=== PATIENT | male | born 1975 | race Caucasian/White ===

== ENCOUNTER 2019-04-18 11:04 | Inpatient (IN) ==
[2019-04-18] MEDS ORDERED: 0.9 % Sodium Chloride 1,000 ML IVC ONE (11:06)
[2019-04-18] MEDS ORDERED: Ondansetron 4 MG/2 ML VIAL IVP STA (11:07)
--- NOTE | 2019-04-18 11:08 | Emergency Department Note ---
Disposition Clinical Impression: Biliary colic, Nausea, Fever of unknown origin Disposition: Admitted As Inpatient Time of Disposition: 14:26 General Adult HPI - General Stated complaint: Nausea,fever,Constipation,dehydrated Time Seen by Provider: 04/18/19 11:06 Source: patient, family Mode of arrival: ambulatory Limitations: no limitations Nursing Notes Reviewed: Yes Vital Signs Reviewed: Yes - History of Present Illness HPI Narrative: I have re-performed and reviewed the history documented by the medical student, and I confirm its accuracy except as noted below 43-year-old male without significant past medical history, admits to a family history of an undiagnosed hepatobiliary syndrome, possibly [place] syndrome as the patient, his sister and father all have intermittent hyperbilirubinemia with jaundice and scleral icterus. Patient states that since Tuesday that he has been experiencing fevers, chills, headache, jaundice, nausea with dry heaving without vomiting, as well as constipation. Patient was seen at this facility on Tuesday with unremarkable workup sent home with antinausea medication and followed with his primary care physician on Tuesday ordered an outpatient gallbladder ultraso und which showed gallbladder sludge without cholecystitis or stones. Patient states that his symptoms have remained constant since this time and her only moderate regular relieved by Zofran, and alternating Tylenol/ibuprofen for the management of his fever. Patient's fevers have been up to 103 at home, patient has been able to tolerate by mouth intake Onset (ago): day(s) Location: head, abdomen - Related Data Home Medications Medication Instructions Recorded Confirmed No Known Home Drugs 04/18/19 04/18/19 Allergies Allergy/AdvReac Type Severity Reaction Status Date / Time No Known Allergies Allergy Verified 04/15/19 15:20 Review of Systems: *See History of Present Illness for more detail Constitutional: Admits fever, chills Cardiovascular: Denies: chest pain Respiratory: Denies: dyspnea, cough, hemoptysis Gastrointestinal: Admits abdominal pain, nausea, constipation Denies: vomiting, diarrhea, hematemesis, melena, hematochezia Genitourinary: Denies: hematuria Musculoskeletal: Denies: back pain, neck pain Integumentary: Denies: rash Neurological: Admits to headache Denies: weakness, lightheadedness/dizziness, numbness, paresthesias, difficulty with ambulation. Endocrine: Denies: fatigue All systems ED: reviewed and negative except as stated. Review of Systems: As Per HPI Past Medical History - Past Medical History Medical history: Reports: no medical history - Social History Smoking Status: Current every day smoker Alcohol use: Reports: none Drug use: Reports: none Physical Exam Constitutional: No acute distress, [id number], engaged to conversation, speech is fluid, answers questions appropriately Neuro: GCS 15, no overt focal neurological deficits Head: Atraumatic, normocephalic Eyes: Mild scleral icterus noted. Pupils equal, round and reactive to light, no conjunctival injection Neck: Trachea midline without deviation. Anterior neck is supple without swelling. *Chest: Symmetric chest wall rise *Heart: Cardiac rhythm and rate are regular with S1 and S2 , no S3 or S4 appreciated, no murmurs, gallops, rubs, or clicks. *Lungs: Lungs are clear to auscultation bilaterally, without accessory muscle use or prolonged expiratory phase. No wheezes, rhonchi or stridor appreciated. Abdomen: Mild right upper quadrant abdominal pain to palpation. Abdomen is flat, soft to palpation, normal bowel sounds. No abdominal bruit auscultated. Non-distended, non-rigid, no organomegaly, no ascites appreciated. No pulsatile mass, no guarding to palpation in all four quadrants, no rebound Extremities: Normal capillary refill without evidence of pedal edema, joint swelling or erythema. Pulses/motor intact in all 4 extremities. Psychiatric exam: Patient displays a normal affect and mood for the environment. No overt signs of hallucination. Integumentary: Mild jaundice, warm, dry, intact. No rash, cyanosis, diaphoresis, erythema, or pallor - General Limitations: no limitations General appearance: alert, in no apparent distress Course Course Narrative: Differential diagnosis includes but not limited to: Hepatitis Pancreatitis Biliary colic Viral syndrome Evaluations: basic laboratories, CT abdomen and pelvis without IV contrast. Treatments: IV fentanyl, Zofran for management of patient's pain, IV fluids - Reevaluation(s) Reevaluation #1: Patient noted hospice medicine service for evaluation and management of fever of unknown origin. Hospitalist requests urinalysis and chest x-ray for further evaluation. We are happy to comply with this request and will put these orders in while the patient is in the ED. Reevaluation #2: Patient was found to have lobar pneumonia on chest x-ray. Hospitalist made aware. Patient given azithromycin for management of pneumonia. Vital Signs Temperature 103.0 F H 04/18/19 11:06 Pulse Rate 114 04/18/19 11:06 Respiratory Rate 20 04/18/19 11:06 Blood Pressure 144/85 04/18/19 11:06 O2 Sat by Pulse Oximetry 99 04/18/19 11:06 Temperature 103 F H 04/18/19 12:53 Pulse Rate 103 04/18/19 14:18 Respiratory Rate 16 04/18/19 12:53 Blood Pressure 126/75 04/18/19 14:18 O2 Sat by Pulse Oximetry 98 04/18/19 12:53 Oxygen Delivery Oxygen Delivery Room Air Medical Decision Making - MDM Narrative Medical decision making narrative: EKG, laboratory and imaging results are unremarkable for acute pathology. Patient fever consistent despite management here in the ED. Patient still with pain nausea Patient will be admitted to hospital medicine service for further evaluation and management of fever of unknown origin, intractable nausea Patient verbalizes understanding and agreement with this plan. - Lab Data Lab results reviewed: Yes I reviewed the patient's lab results. Result diagrams: 04/18/19 11:10 04/18/19 11:10 Lab Results 04/18/19 04/18/19 Range/Units 11:10 11:10 WBC 9.2 (4.3-11.1) K/mcL RBC 4.74 (4.19-5.50) M/mcL Hgb 14.4 (12.9-16.9) g/dL Hct 42.1 (37.5-50.1) % MCV 88.8 (83.0-100.0) fL MCH 30.4 (28.0-33.3) pg MCHC 34.2 (31.6-35.5) g/dL RDW 12.4 (11.5-14.5) % Plt Count 235 (140-400) K/mcL MPV 9.1 L (9.4-12.4) fL Immature Gran % 0.4 (0-4) % Seg Neutrophils % 77.9 % Lymphocytes % 11.0 % Monocytes % 10.3 % Eosinophils % 0.1 % Basophils % 0.3 % Neutrophils # 7.2 (1.6-8.9) K/mcL Lymphocytes # 1.0 (0.6-4.6) K/mcL Monocytes # 1.0 (0.0-1.3) K/mcL Eosinophils # 0.0 (0.0-0.6) K/mcL Basophils # 0.0 (0.0-0.2) K/mcL Sodium 138 (136-145) mEq/L Potassium 3.7 (3.5-5.1) mEq/L Chloride 101 (98-107) mEq/L Carbon Dioxide 28 (23-29) mEq/L BUN 11 (6-20) mg/dL Creatinine 0.95 (0.70-1.30) mg/dL Est GFR ( Amer) > 60 (> 60) Est GFR (Non-Af Amer) > 60 (> 60) BUN/Creatinine Ratio 12 (6-26) Glucose 114 H (70-105) mg/dL Calculated Osmolality 286 (280-300) Calcium 9.3 (8.6-10.3) mg/dL Total Bilirubin 2.5 H (0.3-1.0) mg/dL Direct Bilirubin 0.5 H (0.0-0.2) mg/dL Indirect Bilirubin 2.0 H (0.0-1.2) mg/dL AST 29 (13-39) Units/L ALT 69 H (7-52) Units/L Alkaline Phosphatase 126 H (34-104) Units/L Serum Total Protein 7.4 (6.4-8.9) g/dL Albumin 4.3 (3.5-5.7) g/dL Globulin 3.1 (2.4-3.5) g/dL Albumin/Globulin Ratio 1.4 (1.1-2.2) Lipase 19 (11-82) Units/L - Radiology Data Radiology results reviewed: Yes I reviewed the patient's radiology results. Abdomen/Pelvis CT 04/18/19 12:22 IMPRESSION: 1. No acute findings within the abdomen or pelvis 2. Mild splenomegaly, nonspecific 3. Mild hepatic steatosis D/ / 04/18/2019 13:45:53 Jesse Boss MD / [facility] Interpreting Provider: Jesse Boss MD
[2019-04-18] MEDS ORDERED: Ibuprofen 400 MG TABLET PO ONE ×2 (11:15→22:27)
[2019-04-18] MEDS ORDERED: *HR* FentaNYL (PF) 100 MCG/2 ML VIAL IVP ONE (11:19)
--- NOTE | 2019-04-18 11:37 | Emergency Department Note ---
Disposition Clinical Impression: Biliary colic Disposition: Still a Patient Time of Disposition: 11:37 General Adult HPI - General Chief complaint: ED Abdominal Pain Stated complaint: abd pain, n/v, fever Time Seen by Provider: 04/18/19 11:06 Source: patient Limitations: no limitations Nursing Notes Reviewed: Yes Vital Signs Reviewed: Yes - History of Present Illness HPI Narrative: Attestation note: Patient was seen with the emergency medicine resident/nurse practitioner/physician switchboard operator assistant/transitional resident/medical student: Dr. SWEETIE IBARRA. I was present for the significant portions of the performance and interpretation of procedures and EKGs. I have personally performed a face to face evaluation on this patient. I have reviewed and agree with history and physical examination patient management and disposition. 3-year-old male seen by myself and resident on Tuesday patient was worked up for right upper quadrant pain. 2 the patient being here on Tuesday and his paucity of symptoms at that time emergent ultrasound was not required at that time nor available. Patient came back on Tuesday as advised and gotten outpatient ultrasound which showed sludge no CBD dilation and no evidence of gallstones. Patient was getting blood drawn at the lab and he had a bout right upper quadrant pain nausea and vomiting. Denies fevers or chills patient is discomfort but no surgical tenderness to his right upper quadrant patient getting IV fluids analgesics and antiemetics and antipyretics patient we will we will review the labs were ordered outpatient and determine a plan of action upon those results and the patient's response to therapy. Disposition pending Pain Scale: 5 - Related Data Allergies Allergy/AdvReac Type Severity Reaction Status Date / Time No Known Allergies Allergy Verified 04/15/19 15:20 Past Medical History - Past Medical History Medical history: Reports: no medical history - Social History Smoking Status: Current every day smoker Alcohol use: Reports: none Drug use: Reports: none Physical Exam - General Limitations: no limitations General appearance: alert, in no apparent distress Course Vital Signs Temperature 103.0 F H 04/18/19 11:06 Pulse Rate 114 04/18/19 11:06 Respiratory Rate 20 04/18/19 11:06 Blood Pressure 144/85 04/18/19 11:06 O2 Sat by Pulse Oximetry 99 04/18/19 11:06 Temperature 103.0 F H 04/18/19 11:06 Pulse Rate 114 04/18/19 11:06 Respiratory Rate 20 04/18/19 11:06 Blood Pressure 144/85 04/18/19 11:06 O2 Sat by Pulse Oximetry 99 04/18/19 11:06 Oxygen Delivery Oxygen Delivery Room Air
[2019-04-18 11:39] LABS: Basophils % 0.3 %; Eosinophils % 0.1 %; Hematocrit 42.1 % (37.5-50.1); Hemoglobin 14.4 g/dL (12.9-16.9); Immature Granulocytes % 0.4 % (0-4); Mean Corpuscular HGB Conc 34.2 g/dL (31.6-35.5); Mean Corpuscular Hemoglobin 30.4 pg (28.0-33.3); Mean Corpuscular Volume 88.8 fL (83.0-100.0); Mean Platelet Volume 9.1 fL (9.4-12.4); Monocytes % 10.3 %; Neutrophils # 7.2 K/mcL (1.6-8.9); Platelet Count 235 K/mcL (140-400); Red Blood Count 4.74 M/mcL (4.19-5.50); Red Cell Distribution Width 12.4 % (11.5-14.5); Segmented Neutrophils % 77.9 %; White Blood Count 9.2 K/mcL (4.3-11.1)
--- NOTE | 2019-04-18 11:54 | Emergency Department Note ---
Disposition Clinical Impression: Biliary colic, Nausea, Fever of unknown origin Disposition: Admitted As Inpatient Time of Disposition: 23:18 Abdominal Pain HPI - General Chief Complaint: ED Abdominal Pain Stated Complaint: abd pain, n/v, fever Time Seen by Provider: 04/18/19 11:06 Source: patient - History of Present Illness HPI Narrative: 43 year old male reports to the ER today with complaints of continued nausea and abdominal discomfort since Tuesday. He states he was in the ER on Tuesday and was discharged home to follow up with his PCP if he did not have improvement. He went to his PCP on Tuesday where he had more labs ordered and an outpatient ultrasound was preformed which show biliary sludge. He states he has had a fever which today has been up to 103.0 and has not had any improvement since Tue and has had reduced oral intake. He states he is having abdominal discomfort, nausea, constipation, and dark urine. He was informed by his PCP to come to the hospital today after the PCP received his ultrasound scan. Pain Scale: 5 - Related Data Home Medications Medication Instructions Recorded Confirmed No Known Home Drugs 04/18/19 04/18/19 Allergies Allergy/AdvReac Type Severity Reaction Status Date / Time No Known Allergies Allergy Verified 04/15/19 15:20 Constitutional: Reports: fever Cardiovascular: Denies: chest pain, dyspnea on exertion Respiratory: Denies: cough Gastrointestinal: Reports: nausea, vomiting (dry heaves), constipation Abdominal Pain PMH - Past Medical History Medical history: Reports: no medical history Male Surgical History: Reports: Tonsillectomy - Social History Smoking status: Current every day smoker Alcohol use: Reports: none Drug use: Reports: none Physical Exam - General Limitations: no limitations General appearance: alert, in no apparent distress - Head Head exam: atraumatic, normocephalic - Eye Eye exam: Present: scleral icterus (mild) - ENT ENT exam: mucous membranes dry - Chest Chest inspection: Present: symmetric chest wall rise. Absent: tenderness - Respiratory Respiratory exam: Present: normal lung sounds bilaterally. Absent: wheezes - Cardiovascular Cardiovascular exam: Present: normal rhythm, tachycardia - Abdominal Exam Abdominal exam: Present: soft, tenderness (mild), normal bowel sounds, Collins's sign. Absent: guarding, rebound Course Vital Signs Temperature 103.0 F H 04/18/19 11:06 Pulse Rate 114 04/18/19 11:06 Respiratory Rate 20 04/18/19 11:06 Blood Pressure 144/85 04/18/19 11:06 O2 Sat by Pulse Oximetry 99 04/18/19 11:06 Temperature 102.1 F H 04/18/19 22:45 Pulse Rate 93 04/18/19 22:45 Respiratory Rate 16 04/18/19 22:45 Blood Pressure 126/80 04/18/19 22:45 O2 Sat by Pulse Oximetry 96 04/18/19 22:45 Oxygen Delivery Oxygen Delivery Room Air Abdominal Pain - Lab Data Result diagrams: 04/18/19 11:10 04/18/19 11:10 Lab Results 04/18/19 04/18/19 Range/Units 11:10 11:10 WBC 9.2 (4.3-11.1) K/mcL RBC 4.74 (4.19-5.50) M/mcL Hgb 14.4 (12.9-16.9) g/dL Hct 42.1 (37.5-50.1) % MCV 88.8 (83.0-100.0) fL MCH 30.4 (28.0-33.3) pg MCHC 34.2 (31.6-35.5) g/dL RDW 12.4 (11.5-14.5) % Plt Count 235 (140-400) K/mcL MPV 9.1 L (9.4-12.4) fL Immature Gran % 0.4 (0-4) % Seg Neutrophils % 77.9 % Lymphocytes % 11.0 % Monocytes % 10.3 % Eosinophils % 0.1 % Basophils % 0.3 % Neutrophils # 7.2 (1.6-8.9) K/mcL Lymphocytes # 1.0 (0.6-4.6) K/mcL Monocytes # 1.0 (0.0-1.3) K/mcL Eosinophils # 0.0 (0.0-0.6) K/mcL Basophils # 0.0 (0.0-0.2) K/mcL Sodium 138 (136-145) mEq/L Potassium 3.7 (3.5-5.1) mEq/L Chloride 101 (98-107) mEq/L Carbon Dioxide 28 (23-29) mEq/L BUN 11 (6-20) mg/dL Creatinine 0.95 (0.70-1.30) mg/dL Est GFR ( Amer) > 60 (> 60) Est GFR (Non-Af Amer) > 60 (> 60) BUN/Creatinine Ratio 12 (6-26) Glucose 114 H (70-105) mg/dL Calculated Osmolality 286 (280-300) Calcium 9.3 (8.6-10.3) mg/dL Total Bilirubin 2.5 H (0.3-1.0) mg/dL Direct Bilirubin 0.5 H (0.0-0.2) mg/dL Indirect Bilirubin 2.0 H (0.0-1.2) mg/dL AST 29 (13-39) Units/L ALT 69 H (7-52) Units/L Alkaline Phosphatase 126 H (34-104) Units/L Serum Total Protein 7.4 (6.4-8.9) g/dL Albumin 4.3 (3.5-5.7) g/dL Globulin 3.1 (2.4-3.5) g/dL Albumin/Globulin Ratio 1.4 (1.1-2.2) Lipase 19 (11-82) Units/L
[2019-04-18 11:58] LABS: Alanine Aminotransferase 69 Units/L (7-52); Albumin 4.3 g/dL (3.5-5.7); Albumin/Globulin Ratio 1.4 (1.1-2.2); Alkaline Phosphatase 126 Units/L (34-104); Aspartate Amino Transferase 29 Units/L (13-39); BUN/Creatinine Ratio 12 (6-26); Bilirubin,Direct 0.5 mg/dL (0.0-0.2); Bilirubin,Total 2.5 mg/dL (0.3-1.0); Blood Urea Nitrogen 11 mg/dL (6-20); Calcium 9.3 mg/dL (8.6-10.3); Carbon Dioxide 28 mEq/L (23-29); Chloride 101 mEq/L (98-107); Globulin 3.1 g/dL (2.4-3.5); Glucose 114 mg/dL (70-105); Lipase 19 Units/L (11-82); Osmolality,Calculated 286 (280-300); Potassium 3.7 mEq/L (3.5-5.1); Sodium 138 mEq/L (136-145); Total Protein 7.4 g/dL (6.4-8.9); eGFR For African Americans > 60 (> 60); eGFR For Non-African Americans > 60 (> 60)
[2019-04-18] MEDS ORDERED: cefTRIAXone 1,000 MG in Water for inj. (sterile) 20 ML 10 ML IVP ONE ×2 (13:58→17:00)
[2019-04-18] MEDS ORDERED: Azithromycin 500 MG in D5% in Water 250 ML IVPB ONE (15:38)
[2019-04-18] MEDS ORDERED: Naloxone 0.4 MG/ML INJ IVP PRN (15:50)
[2019-04-18 16:22] LABS: Bilirubin,Urine Small (Negative); Blood,Urine Negative (Negative); Clarity,Urine Clear (Clear); Color,Urine Dark Yellow (Yellow); Glucose,Urine (UA) Normal (Normal); Ketones,Urine >=160 mg/dL (Negative); Leukocyte Esterase,Urine Negative (Negative); Nitrite,Urine Negative (Negative); Protein,Urine 100 mg/dL (Neg-Trace); Specific Gravity,Urine 1.017 (1.010-1.025); Urobilinogen,Urine Normal (Normal)
[2019-04-18 16:24] LABS: Bacteria,Urine None Seen per hpf (None-Few); Hyaline Casts,Urine Moderate per lpf (None-Few); Squamous Epithelial Cell,Urine Many per lpf (None-Few)
[2019-04-18] MEDS: Ondansetron 4 MG/2 ML VIAL IVP PRN (16:48)
[2019-04-18] MEDS: 0.9 % Sodium Chloride 1,000 ML IVC SCH ×3 (16:48→18:44)
[2019-04-18] MEDS: *HR* OxyCODONE/APAP 5/325 TABLET PO PRN (16:49)
--- NOTE | 2019-04-18 17:26 | Internal Med History&Physical ---
Date of Encounter: 04/18/19 Time of Encounter: 17:21 Internal Medicine - H&P: HPI Chief complaint: fever and nausea Admitted From: Emergency Dept Plans for Post Hospital Care: Home History of present illness: Mr. Lopez is a 43 year old male with no significant past med hx presented to ED after ultrasound of abdomen today. He was evaluated and found to have pneumonia and subsequently placed in observation. Mr Lopez started that he started feeling ill last Tuesday. He had some indigestion and nausea. He was seen in the weekend on Tuesday and diagnosed with viral syndrome and discharged with antiemetic. He followed with his PCP and ultrasound of gallbladder ordered. This was performed this AM and he was noted to have pain with pressure on gallbladder and sludge. He was sent to ED. CXR has shown a BENITA infiltrate and he was febrile to 103. According to patient and his he was achy and had a headache when this began. [place] feverish as well. No diarrhea. No abdominal pain. No urinary symptoms. No joint pain. No one else ill. He noticed last night that when he was lying on his L side he heard "bubbling" sound in his chest. Has hx of elevated bilirubin at baseline. He was markedly tachycardic in ED but this has resolved at this time. Overall he is feeling somewhat better. Past Med Surg Social Fam HX - Past Medical History Source: patient Medical history: no medical history - Past Surgical History Surgical History: no surgical history - Social History Smoking Status: Never smoker Alcohol use: none Drug use: none Occupational status: employed Current living situation: With Family Activity Level: Independent ambulation Recent Out of Country Travel Within the Last 8 Weeks: No - Family History Mother Living Status: Still Living Hx Family Cardiac Disorders: No Hx Family Respiratory Disorders: No Internal Medicine - H&P: Meds No Known Home Drugs 04/18/19 [History] Allergy/AdvReac Type Severity Reaction Status Date / Time No Known Allergies Allergy Verified 04/15/19 15:20 All Systems PM: A 10-system review of systems was performed and is negative for pertinent findings except as documented above in the HPI. - Constitutional Constitutional: anorexia, malaise - EENT Eyes: no change in vision, no loss of vision Ears: ear pain, no decreased hearing Nose, mouth and throat: dry mouth, no mouth pain, no sinus pain - Cardiovascular Cardiovascular ROS IM: no chest pain, no dyspnea, no dyspnea on exertion, no lightheadedness, no palpitations - Respiratory Respiratory: no cough, no dyspnea, no dyspnea on exertion, no wheezing, no chest congestion, no excessive phlegm production - Gastrointestinal Gastrointestinal: nausea, no abdominal pain, no diarrhea, no vomiting - Genitourinary Genitourinary ROS male: no genital pain, no urinary frequency - Musculoskeletal Musculoskeletal ROS IM: myalgias, no arthralgias - Integumentary Integumentary IM: no erythema, no rash - Neurological Neurological ROS: no confusion, no numbness, no weakness - Endocrine Endocrine IM: no excessive sweating - Hematologic/Lymphatic Hematologic/Lymphatic: no easy bleeding - Allergic/Immunologic Allergic/Immunologic: no itchy eyes - Constitutional Vitals: Temp Pulse Resp BP Pulse Ox 98.9 F 85 16 119/73 96 04/18/19 16:37 04/18/19 16:37 04/18/19 16:37 04/18/19 16:37 04/18/19 16:37 General appearance: Present: A&O X 3, pleasant, answers questions appropriately Exam: See below - Head Head exam: Present: atraumatic, normocephalic - Eye Eye exam: Present: EOMI, scleral icterus - ENT ENT exam: Present: mucous membranes moist - Neck Neck exam general surgery: Present: lymphadenopathy (Small lymph node behind R ear), normal inspection - Respiratory Respiratory exam: Present: rales (anterior BENITA area). Absent: rhonchi, wheezes - Cardiovascular Cardiovascular exam: Present: RRR. Absent: +S3, +S4, systolic murmur, tachycardia - GI/Abdominal GI/Abdominal exam: Present: normal bowel sounds, soft. Absent: mass, tenderness - Extremities Exam Extremities exam: Present: warm. Absent: tenderness - Neurological Exam Neurological exam: Present: alert, oriented X3, no focal deficits - Skin Skin exam: Present: dry, warm. Absent: rash Internal Med - H&P Results - Labs CBC & Chem 7: 04/18/19 11:10 04/18/19 11:10 Labs: Short CBC 04/18/19 Range/Units 11:10 WBC 9.2 (4.3-11.1) K/mcL Hgb 14.4 (12.9-16.9) g/dL Hct 42.1 (37.5-50.1) % Plt Count 235 (140-400) K/mcL Neutrophils # 7.2 (1.6-8.9) K/mcL BMP 04/18/19 11:10 Sodium 138 Potassium 3.7 Chloride 101 Carbon Dioxide 28 BUN 11 Creatinine 0.95 Glucose 114 H Calcium 9.3 Liver Function 04/18/19 Range/Units 11:10 Total Bilirubin 2.5 H (0.3-1.0) mg/dL Direct Bilirubin 0.5 H (0.0-0.2) mg/dL AST 29 (13-39) Units/L ALT 69 H (7-52) Units/L Alkaline Phosphatase 126 H (34-104) Units/L Albumin 4.3 (3.5-5.7) g/dL Urine 04/18/19 Range/Units 16:11 Urine Color Dark Yellow (Yellow) Urine Clarity Clear (Clear) Urine pH 7.0 (5.0-8.0) pH Units Ur Specific [place] 1.017 (1.010-1.025) Urine Protein 100 H (Neg-Trace) mg/dL Urine Glucose (UA) Normal (Normal) mg/dL - Impressions ITS Impressions Abdomen/Pelvis CT 04/18/19 12:22 IMPRESSION: 1. No acute findings within the abdomen or pelvis 2. Mild splenomegaly, nonspecific 3. Mild hepatic steatosis D/ / 04/18/2019 13:45:53 [facility] MD / [facility] Interpreting Provider: Jesse Boss MD Chest X-Ray 04/18/19 14:23 IMPRESSION: Findings of lobar pneumonia axial subsegment left upper lobe. Chest radiograph surveillance in 6-8 weeks recommended to ensure clearance. D/ / Bill Ndiaye / [facility]di[facility] Interpreting Provider: Bill Ndiaye - Assessment and Plan (1) Pneumonia Current Visit: Yes Status: Suspected Assessment and plan: Pt presented to ED with approx a week hx of symptoms of nausea and malaise. Prior work up negative. CXR has BENITA infiltrate. He is febrile and tachycardic in ED. Place in observation. IV abx. Fluids. Check urinary antigens. Check RIP. Anticipate will be discharged in next 24-48 hours. Qualifiers: Pneumonia type: due to Pneumococcus Laterality: left Lung location: upper lobe of lung Qualified Code(s): J13 - Pneumonia due to Streptococcus pneumoniae (2) Severe sepsis Current Visit: Yes Status: Acute Assessment and plan: Pt presented to ED with fever and tachycardia with pneumonia on CXR. Observation, IV fluids, IV abx. (3) Gallbladder sludge Current Visit: Yes Status: Acute Assessment and plan: Pt noted to have sludge with no cholecystitis. Has slight increase in ALT and alk phos Recheck labs in AM (4) Gilbert syndrome Current Visit: Yes Status: Suspected Assessment and plan: Pt noted to have chronic low grade elevation in bilirubin (as does his dad and sister). Monitor - Time Spent With Patient Total time spent is greater than 50% in coordination of care (as documented) at patient's floor/unit and/or counseling patient:
--- NOTE | 2019-04-18 17:39 | Sepsis Event Note ---
Sepsis Reassessment Note - Evaluation Sepsis Screen: No Definite Risk Current Stage of Sepsis: sepsis Possible Source of Sepsis: pulmonary - Focused Exam Date of Encounter: 04/18/19 Time of Encounter: 17:38 Vital Signs: Vital Signs Temp Pulse Resp BP Pulse Ox 04/18/19 16:37 98.9 F 85 16 119/73 96 04/18/19 14:18 103 126/75 04/18/19 12:53 103 F H 107 16 133/75 98 04/18/19 11:06 103.0 F H 114 20 144/85 99 Respiratory Exam: Present: rales Cardiovascular Exam: Present: RRR Capillary Refill: < 2 seconds Peripheral Pulse Strength: 3+ normal Peripheral Pulse Location: Pedal Skin Exam: normal turgor - Reassessment Comments Comments: Improving with fluids and abx.
[2019-04-18] MEDS: *HR* HYDROcodone/Acet 5/325 mg TABLET PO PRN (18:44)
[2019-04-18 18:56] LABS: Adenovirus Not Detected (Not Detect); Bordetella Pertussis Not Detected (Not Detect); Chlamydophila pneumoniae Not Detected (Not Detect); Coronavirus 229E Not Detected (Not Detect); Coronavirus HKU1 Not Detected (Not Detect); Coronavirus NL63 Not Detected (Not Detect); Coronavirus OC43 Not Detected (Not Detect); Human Metapneumovirus Not Detected (Not Detect); Human Rhinovirus/Enterovirus Not Detected (Not Detect); Influenza A Subtype 2009 H1 Not Detected (Not Detect); Influenza A Untypeable Not Detected (Not Detect); Influenza B Not Detected (Not Detect); Mycoplasma pneumoniae Not Detected (Not Detect); Parainfluenza Virus 1 Not Detected (Not Detect); Parainfluenza Virus 2 Not Detected (Not Detect); Parainfluenza Virus 3 Not Detected (Not Detect); Parainfluenza Virus 4 Not Detected (Not Detect); Respiratory Syncytial Virus Not Detected (Not Detect)
[2019-04-18] MEDS: Acetaminophen 325 MG TABLET PO PRN (23:43)
[2019-04-19] MEDS: 0.9 % Sodium Chloride 1,000 ML IVC SCH ×3 (02:13→17:13)
[2019-04-19] MEDS: Ondansetron 4 MG/2 ML VIAL IVP PRN ×2 (05:26→17:11)
[2019-04-19] MEDS: Acetaminophen 325 MG TABLET PO PRN ×3 (05:34→20:12)
[2019-04-19 06:08] LABS: Hematocrit 38.1 % (37.5-50.1); Hemoglobin 13.4 g/dL (12.9-16.9); Mean Corpuscular HGB Conc 35.2 g/dL (31.6-35.5); Mean Corpuscular Hemoglobin 30.9 pg (28.0-33.3); Mean Platelet Volume 9.3 fL (9.4-12.4); Platelet Count 199 K/mcL (140-400); Red Blood Count 4.33 M/mcL (4.19-5.50); Red Cell Distribution Width 12.7 % (11.5-14.5)
[2019-04-19 06:26] LABS: Alanine Aminotransferase 50 Units/L (7-52); Albumin 3.3 g/dL (3.5-5.7); Albumin/Globulin Ratio 1.3 (1.1-2.2); Alkaline Phosphatase 94 Units/L (34-104); Aspartate Amino Transferase 29 Units/L (13-39); BUN/Creatinine Ratio 11 (6-26); Bilirubin,Total 1.7 mg/dL (0.3-1.0); Blood Urea Nitrogen 9 mg/dL (6-20); Calcium 7.9 mg/dL (8.6-10.3); Carbon Dioxide 20 mEq/L (23-29); Chloride 106 mEq/L (98-107); Globulin 2.6 g/dL (2.4-3.5); Glucose 108 mg/dL (70-105); Magnesium 1.7 mg/dL (1.6-2.6); Osmolality,Calculated 289 (280-300); Sodium 140 mEq/L (136-145); Total Protein 5.9 g/dL (6.4-8.9); eGFR For African Americans > 60 (> 60); eGFR For Non-African Americans > 60 (> 60)
[2019-04-19] MEDS: *HR* HYDROcodone/Acet 5/325 mg TABLET PO PRN (07:35)
[2019-04-19] MEDS ORDERED: Ibuprofen 400 MG TABLET PO PRN (11:59)
[2019-04-19] MEDS: *HR* OxyCODONE/APAP 5/325 TABLET PO PRN (12:37)
[2019-04-19] MEDS ORDERED: Sennosides/Docusate Sodium TABLET PO PRN (13:00)
--- NOTE | 2019-04-19 13:21 | Internal Med Progress Note ---
<Primitivo Heller - Last Filed: 04/19/19 14:05> Hospitalist Progress Note - Encounter Date of Encounter: 04/19/19 - Exam Vitals: Temp Pulse Resp BP Pulse Ox 101.9 F H 87 16 105/70 96 04/19/19 10:55 04/19/19 10:55 04/19/19 10:55 04/19/19 10:55 04/19/19 10:55 - Assessment and Plan (1) Pneumonia Current Visit: Yes Status: Suspected (2) Severe sepsis Current Visit: Yes Status: Resolved (3) Gallbladder sludge Current Visit: Yes Status: Acute (4) Gilbert syndrome Current Visit: Yes Status: Suspected - Time Spent with Patient Total time spent is greater than 50% in coordination of care (as documented) at patient's floor/unit and/or counseling patient: Internal Medicine: Result - Labs CBC & Chem 7: 04/19/19 05:56 04/19/19 05:56 Labs: Short CBC 04/19/19 Range/Units 05:56 WBC 12.0 H (4.3-11.1) K/mcL Hgb 13.4 (12.9-16.9) g/dL Hct 38.1 (37.5-50.1) % Plt Count 199 (140-400) K/mcL BMP 04/19/19 05:56 Sodium 140 Potassium 5.0 D Chloride 106 Carbon Dioxide 20 L BUN 9 Creatinine 0.84 Glucose 108 H Calcium 7.9 L Liver Function 04/19/19 Range/Units 05:56 Total Bilirubin 1.7 H (0.3-1.0) mg/dL AST 29 (13-39) Units/L ALT 50 (7-52) Units/L Alkaline Phosphatase 94 (34-104) Units/L Albumin 3.3 L (3.5-5.7) g/dL Urine 04/18/19 Range/Units 16:11 Urine Color Dark Yellow (Yellow) Urine Clarity Clear (Clear) Urine pH 7.0 (5.0-8.0) pH Units Ur Specific [place] 1.017 (1.010-1.025) Urine Protein 100 H (Neg-Trace) mg/dL Urine Glucose (UA) Normal (Normal) mg/dL - Impressions Impressions Abdomen/Pelvis CT 04/18/19 12:22 IMPRESSION: 1. No acute findings within the abdomen or pelvis 2. Mild splenomegaly, nonspecific 3. Mild hepatic steatosis D/ / 04/18/2019 13:45:53 Jesse Boss MD / edouard Interpreting Provider: Jesse Boss MD Chest X-Ray 04/18/19 14:23 IMPRESSION: Findings of lobar pneumonia axial subsegment left upper lobe. Chest radiograph surveillance in 6-8 weeks recommended to ensure clearance. D/ / Bill Ndiaye / Bill Ndiaye Interpreting Provider: Bill Ndiaye Consult Discharge Plan - Plan Referrals: William Lorenz DO [Primary Care Provider] - - Attending Attestation I examined this patient and my medical decision-making was reviewed with the Resident Physician on 04/19/19. I agree with the documented findings, disposition and treatment plan as described except to the extent set forth below. Mr Lopez is currently in observation for sepsis related to pneumonia. He remains moderate to high risk due to potential for worsening clinical status. Mr Lopez continues to be febrile today. Feels more congested in chest and not really able to cough it much. Continues to have headache. No GI issues now. No abdominal pain. Exam shows some evidence of congestion on L side of chest. No wheeze now. Warm to touch. Abd nontender. WBC slightly increased today. On RA. Urinary antigens and RIP negative. Continue IV abx and supportive care. Add muscle relaxant for headache and Senna Plus. Add mucinex to increase sputum. <Sarath Cai - Last Filed: 04/19/19 18:58> Hospitalist Progress Note - Encounter Date of Encounter: 04/19/19 Time of Encounter: 08:50 - Subjective Interval History: When seen today patient was admitting to mild shortness of breath, which has been unchanged since admission. Admitted to clear productive cough. He denied any subjective fever. Denied any chest pain. Denied any abdominal pain, nausea, or vomiting. - Exam Vitals: Temp Pulse Resp BP Pulse Ox 101.9 F H 87 16 105/70 96 04/19/19 10:55 04/19/19 10:55 04/19/19 10:55 04/19/19 10:55 04/19/19 10:55 Exam: GENERAL APPEARANCE: Well developed, well nourished, alert and cooperative, and appears to be in no acute distress. HEAD: normocephalic. EYES: vision is grossly intact. EARS: hearing grossly intact. NOSE: No nasal discharge. THROAT: Oral cavity and pharynx normal. No inflammation, swelling, exudate, or lesions. NECK: Neck supple, non-tender without lymphadenopathy, masses or thyromegaly. CARDIAC: Normal S1 and S2. No S3, S4 or murmurs. Rhythm is regular. There is no peripheral edema, cyanosis or pallor. Extremities are warm and well perfused. Capillary refill is less than 2 seconds. No carotid bruits. LUNGS: Clear to auscultation and percussion without rales, rhonchi, wheezing or diminished breath sounds. ABDOMEN: Positive bowel sounds. Soft, nondistended, nontender. No guarding or rebound. No masses. MUSKULOSKELETAL: Adequately aligned spine. ROM intact spine and extremities. No joint erythema or tenderness. Normal muscular development. Normal gait. BACK: Examination of the spine reveals normal gait and posture, no spinal deformity, symmetry of spinal muscles, without tenderness, decreased range of motion or muscular spasm. EXTREMITIES: No significant deformity or joint abnormality. No edema. Peripheral pulses intact. No varicosities. LOWER EXTREMITY: Examination of both feet reveals all toes to be normal in size and symmetry, normal range of motion, normal sensation with distal capillary filling of less than 2 seconds without tenderness, swelling, discoloration, nodules, weakness or deformity; SKIN: Skin normal color, texture and turgor with no lesions or eruptions. PSYCHIATRIC: The mental examination revealed the patient was oriented to person, place, and time. - Assessment and Plan (1) Pneumonia Current Visit: Yes Status: Suspected Assessment and Plan: Pt presented to ED with approx a week hx of symptoms of nausea and malaise. Prior work up negative. CXR has BENITA infiltrate. He is febrile and tachycardic in ED. Place in observation. He was febrile this morning with a temp of 101.9, however he was not tachycardic and his BP was normotensive. Fever decreased in the afternoon to 100.4. Urinary antigens were negative. Viral panel was negative. Plan: - C/W IV abx day #2. - C/W Fluids. (2) Severe sepsis Current Visit: Yes Status: Resolved Assessment and Plan: Pt presented to ED with fever and tachycardia with pneumonia on CXR. Plan: - Observation, IV fluids, IV abx. (3) Gallbladder sludge Current Visit: Yes Status: Acute Assessment and Plan: Pt noted to have sludge with no cholecystitis. Plan: - Has slight increase in ALT and alk phos. Normalized in the AM today. (4) Gilbert syndrome Current Visit: Yes Status: Suspected Assessment and Plan: Pt noted to have chronic low grade elevation in bilirubin (as does his dad and sister). - Time Spent with Patient Total time spent is greater than 50% in coordination of care (as documented) at patient's floor/unit and/or counseling patient: Internal Medicine: Result - Labs CBC & Chem 7: 04/19/19 05:56 04/19/19 05:56 Labs: Short CBC 04/19/19 Range/Units 05:56 WBC 12.0 H (4.3-11.1) K/mcL Hgb 13.4 (12.9-16.9) g/dL Hct 38.1 (37.5-50.1) % Plt Count 199 (140-400) K/mcL BMP 04/19/19 05:56 Sodium 140 Potassium 5.0 D Chloride 106 Carbon Dioxide 20 L BUN 9 Creatinine 0.84 Glucose 108 H Calcium 7.9 L Liver Function 04/19/19 Range/Units 05:56 Total Bilirubin 1.7 H (0.3-1.0) mg/dL AST 29 (13-39) Units/L ALT 50 (7-52) Units/L Alkaline Phosphatase 94 (34-104) Units/L Albumin 3.3 L (3.5-5.7) g/dL Urine 04/18/19 Range/Units 16:11 Urine Color Dark Yellow (Yellow) Urine Clarity Clear (Clear) Urine pH 7.0 (5.0-8.0) pH Units Ur Specific [place] 1.017 (1.010-1.025) Urine Protein 100 H (Neg-Trace) mg/dL Urine Glucose (UA) Normal (Normal) mg/dL - Impressions Impressions Abdomen/Pelvis CT 04/18/19 12:22 IMPRESSION: 1. No acute findings within the abdomen or pelvis 2. Mild splenomegaly, nonspecific 3. Mild hepatic steatosis D/ / 04/18/2019 13:45:53 Jesse Boss MD / edouard Interpreting Provider: Jesse Boss MD Chest X-Ray 04/18/19 14:23 IMPRESSION: Findings of lobar pneumonia axial subsegment left upper lobe. Chest radiograph surveillance in 6-8 weeks recommended to ensure clearance. D/ / Bill Ndiaye / Bill Ndiaye Interpreting Provider: Bill Ndiaye <Primitivo Heller - Last Filed: 04/19/19 14:05> (1) Pneumonia Qualifiers: Pneumonia type: due to Pneumococcus Laterality: left Lung location: upper lobe of lung Qualified Code(s): J13 - Pneumonia due to Streptococcus pneumoniae <Sarath Cai - Last Filed: 04/19/19 18:58> (1) Pneumonia Qualifiers: Pneumonia type: due to Pneumococcus Laterality: left Lung location: upper lobe of lung Qualified Code(s): J13 - Pneumonia due to Streptococcus pneumoniae
[2019-04-19] MEDS: cefTRIAXone 2,000 MG in Water for inj. (sterile) 20 ML 20 ML IVP SCH (16:12)
[2019-04-19] MEDS: Azithromycin 500 MG in D5% in Water 250 ML IVPB SCH (16:15)
[2019-04-19] MEDS ORDERED: *HR* Promethazine 25 MG/ML VIAL IVP PRN (18:43)
[2019-04-19] MEDS ORDERED: *HR* Promethazine 25 MG/ML VIAL ONE (18:49)
[2019-04-20] MEDS: 0.9 % Sodium Chloride 1,000 ML IVC SCH (01:03)
[2019-04-20] MEDS: Ondansetron 4 MG/2 ML VIAL IVP PRN (04:50)
[2019-04-20] MEDS: Acetaminophen 325 MG TABLET PO PRN ×2 (05:36→20:24)
[2019-04-20] MEDS ORDERED: *HR* LORazepam 2 MG/ML VIAL IVP ONE (06:04)
[2019-04-20] MEDS ORDERED: Levalbuterol Neb 1.25 MG/3 ML ONE (06:33)
[2019-04-20] MEDS: Levalbuterol Neb 1.25 MG/3 ML IH SCH ×4 (06:35→21:59)
[2019-04-20 07:14] LABS: Hematocrit 34.7 % (37.5-50.1); Mean Corpuscular Hemoglobin 30.5 pg (28.0-33.3); Mean Corpuscular Volume 89.7 fL (83.0-100.0); Mean Platelet Volume 9.3 fL (9.4-12.4); Platelet Count 248 K/mcL (140-400); Red Blood Count 3.87 M/mcL (4.19-5.50); Red Cell Distribution Width 12.7 % (11.5-14.5)
[2019-04-20 07:19] LABS: Hemoglobin 11.8 g/dL (12.9-16.9)
[2019-04-20 07:49] LABS: BUN/Creatinine Ratio 7 (6-26); Blood Urea Nitrogen 6 mg/dL (6-20); Calcium 7.8 mg/dL (8.6-10.3); Carbon Dioxide 24 mEq/L (23-29); Chloride 102 mEq/L (98-107); Glucose 126 mg/dL (70-105); Osmolality,Calculated 293 (280-300); Potassium 3.5 mEq/L (3.5-5.1); Sodium 142 mEq/L (136-145); eGFR For African Americans > 60 (> 60); eGFR For Non-African Americans > 60 (> 60)
[2019-04-20] MEDS: *HR* HYDROcodone/Acet 5/325 mg TABLET PO PRN (09:21)
--- NOTE | 2019-04-20 09:29 | Pulmonology Consult Note ---
Date of Encounter: 04/20/19 Time of Encounter: 09:29 Assessment and Plan (1) Pneumonia Current Visit: Yes Status: Suspected Blood cultures and urine antigens are negative respiratory infection panel negative I reviewed the patient's chest x-ray there is notable left upper lobe pneumonia white count has normalized today but he remains febrile clinically he appears to be improving I discussed with the patient that if persistent fever into tomorrow I would recommend bronchoscopy otherwise can be transitioned to oral antibiotic such as respiratory fluoroquinolone to complete a 10 day course. Please keep nothing by mouth at midnight for this reason In any event, patient will need a follow-up chest x-ray in 4-6 weeks to demonstrate resolution Qualifiers: Pneumonia type: due to Pneumococcus Laterality: left Lung location: upper lobe of lung Qualified Code(s): J13 - Pneumonia due to Streptococcus pneumoniae (2) Severe sepsis Current Visit: Yes Status: Resolved this appears to be secondary to pneumonia and is improving Abdominal evaluation thus far was unremarkable Cultures negative Continue antimicrobials Thank you very much for this consultation we will continue to follow with the patient History of Present Illness Consult date: 04/20/19 Requesting physician: Primitivo Heller Reason for consult: pneumonia Chief complaint: Difficulty in Breathing History of present illness: Mr Lopez is a pleasant 43yo gentleman with a past medical history of Gilbert's disease who is currently admitted for Pneumonia. He started experiencing Nausea (without vomiting) malaise, and high grade fevers (>103F) at home last Tuesday. He was then taking Tylenol and ibuprofen but as soon as the medication would wear off the fever would return. He presented to ED on Tuesday and was discharged without any acute findings presented to PCP on Tuesday of this week and RUQ U/S was ordered but patient was experiencing such severe symptoms that he attempted to have U/S done earlier which showed sludge and he was told to go to ED for e valuation. CT abd/pelvis was done w/o acute cholecystitis CXR was performed which was + for BENITA PNA patient was been treated with IV Ceftriaxone and Azithro but continues to have fevers pulmonary was consulted for further eval. In speaking with Mr Lopez today he tells me that he is a lifelong nonsmoker with no significant respiratory illnesses in the past. 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 He does keep rabbits at home but no other exotic pets including birds. Outside of a recent trip to [place] about a month ago he denies any travel including outside of the [place] recently. He denies sick contacts. He does report that he has been clean ing his garage recently that was full of moisture mold and mildew and very ashia. In addition to fevers chills and sweats he has endorsed productive cough with purulent sputum occasionally there is been flecks of blood in the sputum. No misa hemoptysis however he denies any abdominal pain he has noticed nausea and indigestion but no real abdominal pain to speak of denies any diarrhea or burning with urination he has noted ear pressure but denies vision change. He says that today is the first day that he has felt better Past Med Surg Social Fam HX - Past Medical History Medical history: no medical history Psychiatric history: no psych history - Past Surgical History Surgical History: no surgical history - Social History Smoking Status: Never smoker Smokeless Tobacco Status: No Alcohol use: none Drug use: none - Family History Mother Living Status: Still Living Hx Family Cardiac Disorders: No Hx Family Respiratory Disorders: No Medications and Allergies No Known Home Drugs 04/18/19 [History] Allergy/AdvReac Type Severity Reaction Status Date / Time No Known Allergies Allergy Verified 04/19/19 08:57 All Systems: The remainder of the systems were reviewed and are negative Physical Examination Vital Signs: Vital Signs, Last 4 Hours Temp Pulse Resp BP Pulse Ox 04/20/19 06:46 100.0 F H 105 18 110/64 94 04/20/19 06:35 20 96 04/20/19 05:35 101.2 F H General appearance: no acute distress Eyes: nonicteric ENT: oropharynx moist Neck: supple Effort: normal Auscultation: bilateral: clear Cardiovascular: regular rate and rhythm Gastrointestinal: normoactive bowel sounds, soft, non-tender Integumentary: normal Extremities: no cyanosis, no edema, no clubbing Musculoskeletal: no deformities normal mental status, non-focal exam mood appropriate Results - Laboratory Findings CBC and BMP: 04/20/19 06:42 04/20/19 06:42 Abnormal lab findings: Abnormal lab results WBC 12.0 K/mcL (4.3-11.1) H 04/19/19 05:56 RBC 3.87 M/mcL (4.19-5.50) L 04/20/19 06:42 Hgb 11.8 g/dL (12.9-16.9) L D 04/20/19 06:42 Hct 34.7 % (37.5-50.1) L 04/20/19 06:42 MPV 9.3 fL (9.4-12.4) L 04/20/19 06:42 Carbon Dioxide 20 mEq/L (23-29) L 04/19/19 05:56 Glucose 126 mg/dL (70-105) H 04/20/19 06:42 Calcium 7.8 mg/dL (8.6-10.3) L 04/20/19 06:42 1.7 mg/dL (0.3-1.0) H 04/19/19 05:56 0.5 mg/dL (0.0-0.2) H 04/18/19 11:10 2.0 mg/dL (0.0-1.2) H 04/18/19 11:10 ALT 69 Units/L (7-52) H 04/18/19 11:10 126 Units/L (34-104) H 04/18/19 11:10 5.9 g/dL (6.4-8.9) L 04/19/19 05:56 3.3 g/dL (3.5-5.7) L 04/19/19 05:56 100 mg/dL (Neg-Trace) H 04/18/19 16:11 >=160 mg/dL (Negative) H 04/18/19 16:11 Small (Negative) H 04/18/19 16:11 5-15 per hpf (0-3) H 04/18/19 16:11 5-15 per hpf (0-3) H 04/18/19 16:11 Ur Squamous Epith Cells Many per lpf (None-Few) H 04/18/19 16:11 Hyaline Casts Moderate per lpf (None-Few) H 04/18/19 16:11 Ur Culture Indicated? YES (NO) A 04/18/19 16:11 - Microbiology Findings Microbiology Findings: Microbiology, Last 48 Hours 04/18/19 16:11 Urine Culture - Final Urine,Clean Catch No growth. 04/18/19 22:50 Legionella Antigen - Final Urine,Clean Catch Streptococcus pneumoniae Antigen (M - Final 04/18/19 16:27 Blood Culture - Preliminary Peripheral Venipuncture Culture is incubating and being continuously monitored for growth. Final report to follow. 04/18/19 16:27 Blood Culture - Preliminary Peripheral Venipuncture Culture is incubating and being continuously monitored for growth. Final report to follow. - Diagnostic Findings Chest x-ray: report reviewed, image reviewed - Clinical Findings Intake & Output: Intake & Output 04/19/19 04/20/19 04/20/19 23:59 07:59 15:59 Intake Total 0 / 4110 1500 / 1500 Balance 1910 / 4110 1500 / 1500 Consult Discharge Plan - Plan Referrals: William Lorenz DO [Primary Care Provider] -
[2019-04-20] MEDS: *HR* OxyCODONE/APAP 5/325 TABLET PO PRN ×2 (11:18→17:58)
--- NOTE | 2019-04-20 13:18 | Internal Med Progress Note ---
Hospitalist Progress Note - Encounter Date of Encounter: 04/20/19 Time of Encounter: 09:00 - Subjective Interval History: When seen today patient says his breathing has improved from yesterday a little but still continues to complain of congestion on the left side. He admits to subjective fever. Denies any nausea or vomiting. Denies any abdominal pain. - Exam Vitals: Temp Pulse Resp BP Pulse Ox 99.8 F H 106 14 127/66 93 04/20/19 10:03 04/20/19 10:03 04/20/19 10:03 04/20/19 10:04/20/19 10:03 Exam: GENERAL APPEARANCE: Well developed, well nourished, alert and cooperative, and appears to be in no acute distress. HEAD: normocephalic. EYES: vision is grossly intact. EARS: hearing grossly intact. NOSE: No nasal discharge. THROAT: Oral cavity and pharynx normal. No inflammation, swelling, exudate, or lesions. NECK: Neck supple, non-tender without lymphadenopathy, masses or thyromegaly. CARDIAC: Normal S1 and S2. No S3, S4 or murmurs. Rhythm is regular. There is no peripheral edema, cyanosis or pallor. Extremities are warm and well perfused. Capillary refill is less than 2 seconds. No carotid bruits. LUNGS: No signs of wheezing, but did show some crackles on the L posterior side. ABDOMEN: Positive bowel sounds. Soft, nondistended, nontender. No guarding or rebound. No masses. MUSKULOSKELETAL: Adequately aligned spine. ROM intact spine and extremities. No joint erythema or tenderness. Normal muscular development. Normal gait. BACK: Examination of the spine reveals normal gait and posture, no spinal deformity, symmetry of spinal muscles, without tenderness, decreased range of motion or muscular spasm. EXTREMITIES: No significant deformity or joint abnormality. No edema. Peripheral pulses intact. No varicosities. LOWER EXTREMITY: Examination of both feet reveals all toes to be normal in size and symmetry, normal range of motion, normal sensation with distal capillary filling of less than 2 seconds without tenderness, swelling, discoloration, nodules, weakness or deformity; SKIN: Skin normal color, texture and turgor with no lesions or eruptions. PSYCHIATRIC: The mental examination revealed the patient was oriented to person, place, and time. - Assessment and Plan (1) Pneumonia Current Visit: Yes Status: Suspected Assessment and Plan: Pt presented to ED with approx a week hx of symptoms of nausea and malaise. Prior work up negative. CXR has BENITA infiltrate. He is febrile and tachycardic in ED. Place in observation. He was febrile this morning with a temp of 101.9, however he was not tachycardic and his BP was normotensive. Fever decreased in the afternoon to 100.4. Urinary antigens were negative. Viral panel was negative. Pulmonology was consulted. Plan: - C/W IV antibiotics for now. Transition to PO fluoroquinolone tomorrow if no fever. - Pulmonology recommends if persistent fever into tomorrow, would proceed with bronchoscopy otherwise can be transitioned to oral antibiotic such as respiratory fluoroquinolone to complete a 10 day course. - NPO at midnight for possible bronchoscopy tomorrow. - Patient will need a follow-up chest x-ray in 4-6 weeks to demonstrate r esolution - C/W Fluids. (2) Severe sepsis Current Visit: Yes Status: Resolved Assessment and Plan: Pt presented to ED with fever and tachycardia with pneumonia on CXR. WBC downtrending. Afebrile this morning. Plan: - Observation, IV fluids, IV abx. (3) Gallbladder sludge Current Visit: Yes Status: Acute Assessment and Plan: Pt noted to have sludge with no cholecystitis. Plan: - Has slight increase in ALT and alk phos, but has normalized since.. (4) Gilbert syndrome Current Visit: Yes Status: Suspected Assessment and Plan: Pt noted to have chronic low grade elevation in bilirubin (as does his dad and sister). - Time Spent with Patient Total time spent is greater than 50% in coordination of care (as documented) at patient's floor/unit and/or counseling patient: Internal Medicine: Result - Labs CBC & Chem 7: 04/20/19 06:42 04/20/19 06:42 Labs: Short CBC 04/20/19 Range/Units 06:42 WBC 9.0 (4.3-11.1) K/mcL Hgb 11.8 L D (12.9-16.9) g/dL Hct 34.7 L (37.5-50.1) % Plt Count 248 (140-400) K/mcL BMP 04/20/19 06:42 Sodium 142 Potassium 3.5 Chloride 102 Carbon Dioxide 24 BUN 6 Creatinine 0.83 Glucose 126 H Calcium 7.8 L - Impressions Impressions Chest X-Ray 04/20/19 05:32 IMPRESSION: Worsening consolidative process left upper lobe. Interval developing prominent interstitial markings since prior study with horizontal stranding in the right mid lung field. Findings may be related to fluid overload or mild venous congestion. No gross effusions are evident. D/ / Kika Garcia MD / Kika Garcia MD Interpreting Provider: Kika Garcia MD Consult Discharge Plan - Plan Referrals: William Lorenz DO [Primary Care Provider] - (1) Pneumonia Qualifiers: Pneumonia type: due to Pneumococcus Laterality: left Lung location: upper lobe of lung Qualified Code(s): J13 - Pneumonia due to Streptococcus pneumoniae
[2019-04-20] MEDS ORDERED: Ketorolac 15 MG/ML VIAL IVP PRN (14:05)
[2019-04-20] MEDS: cefTRIAXone 2,000 MG in Water for inj. (sterile) 20 ML 20 ML IVP SCH (15:26)
[2019-04-20] MEDS: Azithromycin 500 MG in D5% in Water 250 ML IVPB SCH (15:31)
[2019-04-20] MEDS: levoFLOXacin 750 MG/150 ML 750 MG/150 ML BAG IVPB SCH (17:58)
[2019-04-21] MEDS ORDERED: Ibuprofen 600 MG TABLET PO ONE
[2019-04-21] MEDS: Fluticasone Propionate Nasal 50 MCG/SPRAY BOTTLE NS SCH ×2 (00:41→09:42)
[2019-04-21] MEDS: 0.9 % Sodium Chloride 1,000 ML IVC SCH ×2 (01:10→05:33)
[2019-04-21] MEDS ORDERED: Acetaminophen IV 1,000 MG/100 ML INFUS..BTL IVPB ONE (01:29)
--- NOTE | 2019-04-21 01:35 | Event Note ---
Date of Encounter: 04/20/19 Time of Encounter: 19:43 Alerted by pts. nurse JOVITA Cali that the patient was reporting a 10 out of 10 headache. No history of migraines. Patient reported to nurse that nothing he has received today (pt. has [place] and Toradol PRN) has helped at this point. Patient's mother in the room at the time and stated he has had headaches since admission and does not feel that the headache is due to stress. Went to see the pt. who was resting in bed. Pts. mother was still present. Discussion w/pt. regarding muscle relaxer had taken place during the day. Zanaflex contraindicated d/t current Levaquin and risk for QT prolongation. Flexeril ordered 10 mg by mouth at bedtime. Pt. stated that he did not sleep well at all last night. I told the pt. I would order diphenhydramine IVP to help his insomnia. Pt. still reporting unproductive cough. I had changed his guaifenesin from 600 mg to 1200 mg this morning. Flutter valve added to Xopenex breathing treatments and RT notified. Pt. is sepsis risk d/t fever of 102, HR >90. Motrin ordered. If Motrin ineffective in treating fever, IVPB Ofirmev ordered. Lactic 0.8 yesterday. Repeat ordered for 04:00. Nurse instructed to continue monitoring the pt. very closely and alert me immediately of any adverse changes.
[2019-04-21] MEDS: Levalbuterol Neb 1.25 MG/3 ML IH SCH ×4 (03:30→22:00)
[2019-04-21 06:30] LABS: Hematocrit 31.9 % (37.5-50.1); Hemoglobin 10.8 g/dL (12.9-16.9); Mean Corpuscular HGB Conc 33.9 g/dL (31.6-35.5); Mean Corpuscular Hemoglobin 30.2 pg (28.0-33.3); Mean Corpuscular Volume 89.1 fL (83.0-100.0); Mean Platelet Volume 9.1 fL (9.4-12.4); Platelet Count 259 K/mcL (140-400); Red Blood Count 3.58 M/mcL (4.19-5.50); Red Cell Distribution Width 12.6 % (11.5-14.5); White Blood Count 9.9 K/mcL (4.3-11.1)
--- NOTE | 2019-04-21 06:44 | Pulmonology Progress Note ---
Date of Encounter: 04/21/19 Time of Encounter: 06:43 Assessment and Plan (1) Pneumonia Current Visit: Yes Status: Suspected I discussed with the patient given persistent fevers and clinical symptoms I recommend bronchoscopy to rule out atypical infection and possible resistant infection he declined at this time stating that he wanted to be evaluated for "fungal infections" by blood work and if that does not turn up anything when he would consider bronchoscopy. As noted in the history and physical from yesterday he had been cleaning out his garage recently and was exposed to what he thought was mold and old the garage. Occasionally acute histoplasmosis infections can present like this is not unreasonable sent to send off fungal serologies I see that the Aspergillus and histoplasma galactomannan's have been sent off I will add to that beta D glucan and immunodiffusion for fungal infections as well. White count has normalized which is encouraging would continue treatment with current antimicrobial regimen pending further evaluation since bronchoscopy is negative be performed would also make sure that we have several sputum samples for analysis these too can be analyzed for fungal infections I will follow with you if patient changes his mind over the next 24 hours is keep him nothing by mouth and we can reevaluate for bronchoscopy tomorrow. I recommended this point at the very least repeating his chest x-ray and more likely would recommend formal CT scan of his chest Qualifiers: Qualified Code(s): J13 - Pneumonia due to Streptococcus pneumoniae (2) Severe sepsis Current Visit: Yes Status: Resolved This appears secondary to pneumonia but he appears to have systemic symptoms is [employer] symptoms continue including headache and patient has persistent fevers to may need to consider lumbar puncture. Today on examination patient did not have any nuchal rigidity or photophobia but this clearly meningitis can be in the differential. If workup is unremarkable beginning of next week would have a low threshold for consultation with infectious disease Subjective Principal diagnosis: Pneumonia Interval history: Overnight patient had a severe headache which interestingly enough had improved after administration of nasal cannula O2 he says he is feeling better now still coughing up a lot of thick phlegm which is dark in color. Denies any misa hemoptysis. Continues to spike fevers as high as 102 Objective PUL Vital signs: Last Vital Signs Temp 99.3 F 04/21/19 02:45 Pulse 90 04/21/19 02:45 Resp 16 04/21/19 03:30 BP 124/79 04/21/19 02:45 Pulse Ox 95 04/21/19 03:30 General appearance: no acute distress Eyes: nonicteric ENT: oropharynx moist Neck: supple Auscultation: bilateral: rales (in lung bases ) Cardiovascular: regular rate and rhythm Gastrointestinal: normoactive bowel sounds, soft, non-tender Integumentary: normal Extremities: no cyanosis, no edema, no clubbing Musculoskeletal: no deformities normal mental status, non-focal exam Results - Laboratory Findings CBC and BMP: 04/21/19 06:19 04/21/19 06:19 Abnormal lab findings: Abnormal lab results WBC 12.0 K/mcL (4.3-11.1) H 04/19/19 05:56 RBC 3.58 M/mcL (4.19-5.50) L 04/21/19 06:19 Hgb 10.8 g/dL (12.9-16.9) L 04/21/19 06:19 Hct 31.9 % (37.5-50.1) L 04/21/19 06:19 MPV 9.1 fL (9.4-12.4) L 04/21/19 06:19 Carbon Dioxide 20 mEq/L (23-29) L 04/19/19 05:56 Glucose 126 mg/dL (70-105) H 04/20/19 06:42 POC Glucose 116 mg/dL (70-99) H 04/21/19 05:40 Calcium 7.8 mg/dL (8.6-10.3) L 04/20/19 06:42 1.7 mg/dL (0.3-1.0) H 04/19/19 05:56 0.5 mg/dL (0.0-0.2) H 04/18/19 11:10 2.0 mg/dL (0.0-1.2) H 04/18/19 11:10 ALT 69 Units/L (7-52) H 04/18/19 11:10 126 Units/L (34-104) H 04/18/19 11:10 5.9 g/dL (6.4-8.9) L 04/19/19 05:56 3.3 g/dL (3.5-5.7) L 04/19/19 05:56 100 mg/dL (Neg-Trace) H 04/18/19 16:11 >=160 mg/dL (Negative) H 04/18/19 16:11 Small (Negative) H 04/18/19 16:11 5-15 per hpf (0-3) H 04/18/19 16:11 5-15 per hpf (0-3) H 04/18/19 16:11 Ur Squamous Epith Cells Many per lpf (None-Few) H 04/18/19 16:11 Hyaline Casts Moderate per lpf (None-Few) H 04/18/19 16:11 Ur Culture Indicated? YES (NO) A 04/18/19 16:11 - Microbiology Findings Microbiology Findings: Microbiology, Last 48 Hours 04/18/19 16:11 Urine Culture - Final Urine,Clean Catch No growth. - Clinical Findings Intake & Output: Intake & Output 04/20/19 04/20/19 04/21/19 15:59 23:59 07:59 Intake Total 140 / 1790 150 / 1790 500 / 500 Output Total 0 / 900 900 / 900 Balance 140 / 890 -750 / 890 500 / 500 Consult Discharge Plan - Plan Referrals: William Lorenz DO [Primary Care Provider] -
[2019-04-21 06:52] LABS: BUN/Creatinine Ratio 6 (6-26); Blood Urea Nitrogen 5 mg/dL (6-20); Calcium 8.1 mg/dL (8.6-10.3); Carbon Dioxide 29 mEq/L (23-29); Chloride 103 mEq/L (98-107); Glucose 126 mg/dL (70-105); Osmolality,Calculated 291 (280-300); Potassium 3.1 mEq/L (3.5-5.1); Sodium 141 mEq/L (136-145); eGFR For African Americans > 60 (> 60); eGFR For Non-African Americans > 60 (> 60)
--- NOTE | 2019-04-21 06:52 | Pre-Sedation Evaluation ---
Pre-sedation evaluation - Pre-sedation checklist Date of procedure: 04/21/19 Procedure: Bronchoscopy Recent Vitals: Last Vital Signs Temp 99.3 F 04/21/19 02:45 Pulse 90 04/21/19 02:45 Resp 16 04/21/19 03:30 BP 124/79 04/21/19 02:45 Pulse Ox 95 04/21/19 03:30 H&P (including ROS) documented in medical record: Yes Previous reaction to sedatives/anesthetics: No Dietary Status: NPO after Midnight Airway Assessment: Patient can open mouth completely, TMJ function normal Dentition: No loose teeth or bridges Possible difficult airway: No ASA Classification *see protocol: CLASS II-Mild systemic disease Plan of Care: Pt appropriate candidate for procedure/moderate/conscious sedation, Risks/benefits of procedure/sedation discussed w/ patient/family
[2019-04-21] MEDS: levoFLOXacin 750 MG/150 ML 750 MG/150 ML BAG IVPB SCH (09:42)
--- NOTE | 2019-04-21 09:51 | Internal Med Progress Note ---
Hospitalist Progress Note - Encounter Date of Encounter: 04/21/19 Time of Encounter: 09:42 - Subjective Interval History: Mr Lopez is currently admitted for acute BENITA pneumonia. He remains moderate to high risk due to potential for worsening clinical status. Mr Lopez continues to have issues with fever. Headache better after aerosol treatment and application of oxygen. He said his saturation was in 80s last night. Has had some scant hemoptysis recently. No overt GI bleeding. H/H has been decreasing. No dental pain. Headache gone now. No abd pain. No further vomiting. No urinary symptoms now. Concerned about having any surgical type pr ocedure here due to experiences with family in the past. I spoke to his full family about the situation. They are concerned about fungal. He will have bronch I presume. - Exam Vitals: Temp Pulse Resp BP Pulse Ox 98.6 F 88 16 132/80 96 04/21/19 06:50 04/21/19 06:50 04/21/19 06:50 04/21/19 06:50 04/21/19 06:50 Exam: Gen: Comfortable. Frustrated. Wearing oxygen. Head: Normocephalic EENT: Mucus membranes moist. No lesion. Neck: Supple. No adenopathy. No nuchal rigidity Heart reg and not tachycardic Lungs coarse but no wheeze or rhonchi heard today Abd soft Ext: Moves equally. No edema Neuro: Alert. Oriented. No focal deficit noted. Normal mood and affect - Assessment and Plan (1) Pneumonia Current Visit: Yes Status: Suspected Assessment and Plan: Pt continues to have issues with cough and hypoxia Changed to Levaquin yesterday. Hx of sinus disease - BENITA infiltrate - Hemoglobin decreasing (? dilutional verus other) - will order inflammatory tests. may need further work up Fungal serology ordered yesterday Will add PPD today though doubt TB. Discussed bronch with patient - he is hesitant to have here. Has not had CT chest - will get today with contrast to eval infiltrate area. (2) Severe sepsis Current Visit: Yes Status: Resolved Assessment and Plan: Resolved. (3) Gallbladder sludge Current Visit: Yes Status: Acute Assessment and Plan: No symptoms at this time (4) Gilbert syndrome Current Visit: Yes Status: Suspected Assessment and Plan: Pt noted to have chronic low grade elevation in bilirubin (as does his dad and sister). Monitor (5) Anemia Current Visit: Yes Status: Acute Assessment and Plan: Pt initial hemoglobin was 16 -> 10.8. Normocytic/normochromic. Could be dilutional or acute inflammation. - Time Spent with Patient Total time spent is greater than 50% in coordination of care (as documented) at patient's floor/unit and/or counseling patient: Internal Medicine: Result - Labs CBC & Chem 7: 04/21/19 06:19 04/21/19 06:19 Labs: Short CBC 04/21/19 Range/Units 06:19 WBC 9.9 (4.3-11.1) K/mcL Hgb 10.8 L (12.9-16.9) g/dL Hct 31.9 L (37.5-50.1) % Plt Count 259 (140-400) K/mcL BMP 04/21/19 06:19 Sodium 141 Potassium 3.1 L Chloride 103 Carbon Dioxide 29 BUN 5 L Creatinine 0.86 Glucose 126 H Calcium 8.1 L - Impressions Impressions Sinuses CT 04/20/19 14:06 IMPRESSION: 1. Minimal to mild bilateral ethmoid and maxillary sinus disease, most prominent in the right maxillary sinus. No findings of acute sinusitis. 2. Mild deviation of the posterior nasal septum to the right with spurring but no obstruction the right nasal cavity. D/ / Mike Lindsey MD / Mike Lindsey MD Interpreting Provider: Mike Lindsey MD Consult Discharge Plan - Plan Referrals: William Lorenz DO [Primary Care Provider] - (1) Pneumonia Qualifiers: Pneumonia type: due to Pneumococcus Laterality: left Lung location: upper lobe of lung Qualified Code(s): J13 - Pneumonia due to Streptococcus pneumoniae (5) Anemia Qualifiers: Anemia type: other cause Other causes of anemia: other cause, not classified Qualified Code(s): D64.89 - Other specified anemias
[2019-04-21] MEDS ORDERED: Isovue-370 500 ML BOTTLE IVP ONE (10:05)
[2019-04-21 10:32] LABS: C-Reactive Protein > 300 mg/L (Less than 10)
[2019-04-21] MEDS: Acetaminophen 325 MG TABLET PO PRN ×2 (11:20→19:42)
[2019-04-21] MEDS ORDERED: Furosemide 20 MG/2 ML VIAL IVP STA (14:33)
[2019-04-21] MEDS ORDERED: Ketorolac 15 MG/ML VIAL IVP ONE (15:35)
[2019-04-22] MEDS: Levalbuterol Neb 1.25 MG/3 ML IH SCH ×2 (03:50→10:46)
[2019-04-22 06:31] LABS: Basophils % 0.4 %; Eosinophils # 0.1 K/mcL (0.0-0.6); Eosinophils % 2.1 %; Hemoglobin 11.4 g/dL (12.9-16.9); Immature Granulocytes % 2.4 % (0-4); Lymphocytes # 1.4 K/mcL (0.6-4.6); Lymphocytes % 20.9 %; Mean Corpuscular HGB Conc 33.5 g/dL (31.6-35.5); Mean Corpuscular Hemoglobin 30.6 pg (28.0-33.3); Mean Corpuscular Volume 91.4 fL (83.0-100.0); Mean Platelet Volume 9.4 fL (9.4-12.4); Monocytes # 0.8 K/mcL (0.0-1.3); Monocytes % 11.7 %; Neutrophils # 4.2 K/mcL (1.6-8.9); Platelet Count 307 K/mcL (140-400); Red Blood Count 3.72 M/mcL (4.19-5.50); Red Cell Distribution Width 12.6 % (11.5-14.5); Segmented Neutrophils % 62.5 %; White Blood Count 6.8 K/mcL (4.3-11.1)
[2019-04-22 06:50] LABS: Alanine Aminotransferase 60 Units/L (7-52); Albumin 3.4 g/dL (3.5-5.7); Albumin/Globulin Ratio 1.3 (1.1-2.2); Alkaline Phosphatase 102 Units/L (34-104); Aspartate Amino Transferase 41 Units/L (13-39); BUN/Creatinine Ratio 8 (6-26); Bilirubin,Total 0.9 mg/dL (0.3-1.0); Blood Urea Nitrogen 7 mg/dL (6-20); Calcium 8.6 mg/dL (8.6-10.3); Carbon Dioxide 30 mEq/L (23-29); Chloride 103 mEq/L (98-107); Globulin 2.7 g/dL (2.4-3.5); Glucose 111 mg/dL (70-105); Magnesium 2.1 mg/dL (1.6-2.6); Osmolality,Calculated 291 (280-300); Potassium 3.4 mEq/L (3.5-5.1); Sodium 141 mEq/L (136-145); Total Protein 6.1 g/dL (6.4-8.9); eGFR For African Americans > 60 (> 60); eGFR For Non-African Americans > 60 (> 60)
--- NOTE | 2019-04-22 06:55 | Pulmonology Progress Note ---
Date of Encounter: 04/22/19 Time of Encounter: 06:55 Assessment and Plan (1) Pneumonia Current Visit: Yes Status: Suspected I reviewed the patient's CT scan he has bilateral upper lobe predominant multifocal pneumonia worse on the left than the right with small bilateral effusions CONSISTENT with acute likely infectious. I discussed with the patient given persistent fevers and clinical symptoms I recommend bronchoscopy today he is much more amenable to this procedure. Although clinically he seems to be making some improvements unclear if this improvement will be a persistent given the clinical course and high risk of atypical infectious process fungal infection not withstanding. If fungal infection most likely this would be acute histoplasmosis in the treatment is generally supportive sometimes steroids can be used with efficacy I would not recommend the initiation of empiric antifungal medications at this time. Continue IV antibiotics today Although noninfectious etiologies seemingly unlikely the second completeness recommend sending off DALILA ANCA Rheumatoid factor and anti-CCP (CRP is >300) A bronchoscopy is recommended. The procedure , risks, benefits, complications, and expected outcomes have been reviewed. Benefits of diagnosis, as well as risks to include bleeding, infection, pneumothorax which may require surgical intervention, and in a small population. The patient is aware that sometimes test is nondiagnostic. Discussed with patient and agrees to proceed. For patient comfort the procedure will be assisted by anesthesia for monitored anesthesia care Qualifiers: Pneumonia type: due to Pneumococcus Laterality: left Lung location: upper lobe of lung Qualified Code(s): J13 - Pneumonia due to Streptococcus pneumoniae (2) Severe sepsis Current Visit: Yes Status: Resolved This appears secondary to pneumonia Subjective Principal diagnosis: Pneumonia Interval history: Overnight patient patient did well MAXIMUM TEMPERATURE was less than 101 and he says clinically he is doing much better. Objective PUL Vital signs: Last Vital Signs Temp 98.5 F 04/22/19 06:17 Pulse 79 04/22/19 06:17 Resp 14 04/22/19 06:17 BP 128/77 04/22/19 06:17 Pulse Ox 97 04/22/19 06:17 General appearance: no acute distress Eyes: nonicteric, icteric Neck: supple Auscultation: bilateral: rales Cardiovascular: regular rate and rhythm Gastrointestinal: normoactive bowel sounds Integumentary: normal Extremities: no cyanosis, no edema, no clubbing Musculoskeletal: no deformities normal mental status, non-focal exam mood appropriate Results - Laboratory Findings CBC and BMP: 04/22/19 05:09 06/23/19 05:09 Abnormal lab findings: Abnormal lab results WBC 12.0 K/mcL (4.3-11.1) H 04/19/19 05:56 RBC 3.72 M/mcL (4.19-5.50) L 04/22/19 05:09 Hgb 11.4 g/dL (12.9-16.9) L 04/22/19 05:09 Hct 34.0 % (37.5-50.1) L 04/22/19 05:09 MPV 9.1 fL (9.4-12.4) L 04/21/19 06:19 ESR 70 mm/hr (0-10) H 04/21/19 06:19 Potassium 3.4 mEq/L (3.5-5.1) L 04/22/19 05:09 Carbon Dioxide 30 mEq/L (23-29) H 04/22/19 05:09 BUN 5 mg/dL (6-20) L 04/21/19 06:19 Glucose 111 mg/dL (70-105) H 04/22/19 05:09 POC Glucose 116 mg/dL (70-99) H 04/21/19 05:40 Calcium 8.1 mg/dL (8.6-10.3) L 04/21/19 06:19 1.7 mg/dL (0.3-1.0) H 04/19/19 05:56 0.5 mg/dL (0.0-0.2) H 04/18/19 11:10 2.0 mg/dL (0.0-1.2) H 04/18/19 11:10 AST 41 Units/L (13-39) H 04/22/19 05:09 ALT 60 Units/L (7-52) H 04/22/19 05:09 126 Units/L (34-104) H 04/18/19 11:10 > 300 mg/L (Less than 10) H 04/21/19 06:19 6.1 g/dL (6.4-8.9) L 04/22/19 05:09 3.4 g/dL (3.5-5.7) L 04/22/19 05:09 100 mg/dL (Neg-Trace) H 04/18/19 16:11 >=160 mg/dL (Negative) H 04/18/19 16:11 Small (Negative) H 04/18/19 16:11 5-15 per hpf (0-3) H 04/18/19 16:11 5-15 per hpf (0-3) H 04/18/19 16:11 Ur Squamous Epith Cells Many per lpf (None-Few) H 04/18/19 16:11 Hyaline Casts Moderate per lpf (None-Few) H 04/18/19 16:11 Ur Culture Indicated? YES (NO) A 04/18/19 16:11 - Diagnostic Findings CT scan - chest: report reviewed, image reviewed - Clinical Findings Intake & Output: Intake & Output 04/21/19 04/21/19 04/22/19 15:59 23:59 07:59 Intake Total 630 / 1130 0 / 0 Output Total 850 / 1850 1000 / 1850 200 / 200 Balance -850 / -720 -370 / -720 -200 / -200 Weight 100.2 kg Consult Discharge Plan - Plan Referrals: William Lorenz DO [Primary Care Provider] -
[2019-04-22] MEDS: Fluticasone Propionate Nasal 50 MCG/SPRAY BOTTLE NS SCH (08:42)
[2019-04-22] MEDS: levoFLOXacin 750 MG/150 ML 750 MG/150 ML BAG IVPB SCH (08:42)
--- NOTE | 2019-04-22 09:07 | Event Note ---
Date of Encounter: 04/22/19 Time of Encounter: 09:07 Patient was persistent fevers and bilateral opacities concerning for atypical pneumonia versus resistant infection A bronchoscopy is recommended. The procedure , risks, benefits, complications, and expected outcomes have been reviewed. Benefits of diagnosis, as well as risks to include bleeding, infection, pneumothorax which may require surgical intervention, and in a small population. The patient is aware that sometimes test is nondiagnostic. Discussed with patient and agrees to proceed.
--- NOTE | 2019-04-22 09:26 | Anesthesia Evaluation PreOp ---
Date of Encounter: 04/22/19 Time of Encounter: 09:46 - Past History Planned Operation: Bronchoscopy Cardiac History: Denies any Significant Hx Pulmonary History: Denies Any Significant HX [employer] History: Denies Any Significant HX Other Medical History: Hepatic (Gilbert syndrome) Anesthesia History: No Prior Anesthetic Complications, Past Anesthesia Alcohol Use: none Drug use: none Medications and Allergies No Known Home Drugs 04/18/19 [History] Allergy/AdvReac Type Severity Reaction Status Date / Time No Known Allergies Allergy Verified 04/19/19 08:57 - Meds/Allergy Pre-op Review Medications Reviewed: Yes Allergies Reviewed: Yes Beta Blockers on Current Med List: No Anesthesia Results - Labs 04/22/19 05:09 04/22/19 05:09 - Imaging Chest x-ray: report reviewed (04/20/2019 IMPRESSION: Worsening consolidative process left upper lobe. Interval developing prominent interstitial markings since prior study with horizontal stranding in the right mid lung field. Findings may be related to fluid overload or mild venous congestion. No gross effusions are evident.) Additional studies: 04/21/[address] IMPRESSION: Dense left upper lobe consolidation with multifocal patchy ground-glass airspace disease throughout both lungs consistent with multifocal pneumonia. Recommend follow-up to resolution. Bilateral layering pleural effusions. Anesthesia Exam Vital Signs/O2 Sat, Most Current Temp Pulse Resp BP Pulse Ox 98.5 F 79 14 128/77 97 04/22/19 06:17 04/22/19 06:17 04/22/19 06:17 04/22/19 06:17 04/22/19 06:17 Height: 6'/1.83m Weight: 220 lbs/100 kg NPO (# of Hours): 8 Pain Scale: 0 Pain Scale Used: Numeric (1 - 10) - HEENT Pupil (Motor): EOMI Mallampati: II Teeth: Normal Oral Opening: Greater than 3 - [employer] LOC: Oriented [employer] Motor: Normal RUE, Normal LUE, Normal RLE, Normal LLE, Normal Face [employer] Sensory: Normal: RUE, LUE, RLE, LLE, Face - Cardiac Rhythm: Regular Murmur: None - Pulmonary Breath Sounds: bilateral Clear (decreased BS) Respiratory Effort: Symmetrical Anesthesia Assess/Plan ASA Score: 2 Level of consciousness: Cooperative, Oriented, Tranquil Anesthetic Plan: MAC Monitoring Plan: Standard Monitors
[2019-04-22] MEDS ORDERED: KETAMINE HCL 50 MG/ML SYRINGE ONE (09:44)
[2019-04-22] MEDS ORDERED: Dexmedetomidine HCl 400 MCG/100 ML MLS IVC ONE (09:44)
[2019-04-22] MEDS ORDERED: Propofol 500 MG/50 ML INFUS..BTL ONE (09:45)
[2019-04-22] MEDS ORDERED: *HR* Midazolam HCl 2 MG/2 ML VIAL ONE ×2 (09:46→10:05)
[2019-04-22] MEDS ORDERED: *HR* FentaNYL (PF) 100 MCG/2 ML VIAL ONE (09:46)
[2019-04-22] MEDS ORDERED: *HR* Succinylcholine 200 MG/10 ML VIAL IVP ONE (09:46)
[2019-04-22] MEDS ORDERED: *HR* Propofol 200 MG/20 ML VIAL IVP ONE (09:46)
[2019-04-22] MEDS ORDERED: Lidocaine -MPF 2% 2 ML VIAL ONE (09:46)
[2019-04-22] MEDS ORDERED: Lidocaine -MPF 4% 5 ML AMPUL ONE (09:46)
[2019-04-22] MEDS ORDERED: Ondansetron 4 MG/2 ML VIAL ONE (10:28)
[2019-04-22] MEDS ORDERED: Dexamethasone 4 MG/ML VIAL ONE (10:28)
[2019-04-22 12:12] VITALS: BP 108/78
[2019-04-22 12:33] LABS: Appearance of Body Fluid Cloudy (Clear); Volume of Body Fluid 20 mL; Volume of Body Fluid 8 mL
--- NOTE | 2019-04-22 13:59 | Discharge Summary ---
- NOTES TO OUTPATIENT PROVIDER Notes to Outpatient Provider: Mr Lopez was admitted with multifocal pneumonia. He had initially worsening of infilatrates and persistent fever. He was switched to Levaquin with improvment. He had bronchoscopy today and cultures and further labs studies pending. Orders not resulted at time of discharge: Pending orders 04/18/19 16:27 Culture,Blood [BC] Stat 04/20/19 17:18 Histoplasma galactomannan,Ur Routine 04/20/19 17:56 Aspergillus galactomannan Ag Routine 04/21/19 14:01 Fungal Ab by CF, EIA Routine Fungitell (1,3)-[id number]-T-Eswlzr Routine Histoplasma Antigen Routine MPO/PR3 (ANCA) Antibodies Routine QuantiFERON-TB Gold In-Tube Routine 04/22/19 AFB Culture, Respiratory [TB] Routine AFB Culture, Respiratory [TB] Routine Cell Count w Diff, Body Fluid [BF] Stat Culture,Respiratory [RM] Routine Culture,Respiratory [RM] Routine Fungal Culture [MYC] Routine Fungal Culture [MYC] Routine Herpes Simplex PCR Body Fl Stat Herpes Simplex PCR Body Fl Stat Legionella Culture [RM] Routine Legionella Culture [RM] Routine Resp.Virus Panel,Body Fl Routine Resp.Virus Panel,Body Fl Routine 04/22/19 10:27 Cytology [PTH] Routine 04/22/19 10:32 Cytology [PTH] Routine 04/22/19 11:33 Bronch Asper.galactomannan Routine Date of Encounter: 04/22/19 Time of Encounter: 13:57 - Discharge Diagnosis (1) Pneumonia Priority: Primary Status: Suspected Qualifiers: Pneumonia type: due to Pneumococcus Laterality: left Lung location: upper lobe of lung Qualified Code(s): J13 - Pneumonia due to Streptococcus pneumoniae (2) Gallbladder sludge Priority: Secondary Status: Acute (3) Gilbert syndrome Priority: Secondary Status: Suspected (4) Anemia Priority: Secondary Status: Acute Qualifiers: Anemia type: other cause Other causes of anemia: other cause, not classified Qualified Code(s): D64.89 - Other specified anemias (5) Hypokalemia Priority: Secondary Status: Resolved Hospital course: Mr. Lopez is a 43 year old male with hx of presumed Gilbert syndrome presented to ED after gallbladder US found sludge. He was subsequently admitted. Mr Lopez presented to ED after abnormal US of abdomen. He had been seen in ED prior due to N/V and malaise. He had continued symptoms upon return to ED and CXR revealed BENITA pneumonia. He was started on IV abx and admitted. Mr Lopez continued to have fever and cough. He was evaluated by pulmonology and bronchoscopy advised. He initially did not want to proceed but did have test today. His abx were changed to IV Levaquin with overall steady slow improvement. His fever curve steadily improved. He was concerned about fungal infection and these studies were sent. At this time he is afebrile. He is ready for discharge home. He will complete another week of PO Levaquin and follow up with PCP for further results. Discharge discussed with: patient, family, nurse - Time Spent with Patient Total time spent providing and/or coordinating discharge services: 38min - Discharge Medications Prescriptions: New Fluticasone Propionate Nasal [Flonase] 100 mcg NS DAILY #1 bottle Levofloxacin [Levaquin] 750 mg PO DAILY #7 tablet Home Medications: Fluticasone Propionate Nasal [Flonase] 100 mcg NS DAILY #1 bottle 04/22/19 [Rx] Levofloxacin [Levaquin] 750 mg PO DAILY #7 tablet 04/22/19 [Rx] Allergies/Adverse Reactions: Allergy/AdvReac Type Severity Reaction Status Date / Time No Known Allergies Allergy Verified 04/19/19 08:57 Date of admission: 04/20/19 15:41 Primary care physician: Ant Lorenz DO Consults: 04/20/19 08:58 Consult to Pulmonology [CONS] Routine Consulting Provider: [facility]rin Reason for Consult: PNA patient. Respiratory status not improving. Call Completed: Yes 04/20/19 23:03 Consult to Respiratory Therapy [CONS] Routine Reason for Consult: Please add flutter valve to pts. breathing txs Call Completed: Yes Discharging clinician: Primitivo Heller Anticipated date of discharge: 04/22/19 - Constitutional Vitals: Temp Pulse Resp BP Pulse Ox 98.7 F 77 18 108/78 95 04/22/19 11:55 04/22/19 11:55 04/22/19 11:55 04/22/19 11:55 04/22/19 11:55 General appearance: Present: A&O X 3, pleasant, answers questions appropriately Exam: See below - Head Head exam: Present: normocephalic - Eye Eye exam: Present: EOMI, conjuntiva pink - ENT ENT exam: Present: mucous membranes moist - Neck Neck exam general surgery: Present: normal inspection. Absent: nuchal rigidity, thyromegaly - Respiratory Respiratory exam: Present: rales. Absent: rhonchi, wheezes - Cardiovascular Cardiovascular exam: Present: RRR. Absent: tachycardia - GI/Abdominal GI/Abdominal exam: Present: soft - Extremities Exam Extremities exam: Present: warm. Absent: tenderness - Neurological Exam Neurological exam: Present: alert, oriented X3, no focal deficits - Skin Skin exam: Present: dry, warm. Absent: rash - Patient Status Disposition: Home, Self-Care Condition: Good Functional capacity at discharge: independent ambulation Overall status at discharge: patient is progressing back to baseline - Discharge Instructions Follow Up With: William Lorenz DO [Primary Care Provider] - (Follow up in 1 week) Additional Instructions: Follow-up appointments: If there is not an appointment listed below, please call your physician and schedule a follow-up appointment. If you have congestive heart failure and your symptoms return, make an appointment with your physician. Medication List: Carry an up to date list of medications you are taking at all time. We have given you an updated medication list including any new medications that you have been prescribed. Please provide that list to your primary provider Symptoms: If your condition changes or you experience any of the following symptoms, notify your physician immediately: Unusual or worsening pain, fever, persistent nausea and vomiting, bleeding, increase in swelling (especially in your legs), sudden weight gain, extreme dizziness, chest pain, increased drainage or redness from a wound or incision. Go to the emergency department if you experience a problem with breathing. Weights: If you have a history of swelling or shortness of breath, weigh yourself daily and notify your physician if you have a weight gain of two or more pounds in one day or 5 or more pounds in a week. If you experience any of the warning signs for stroke: Sudden numbness or weakness of the face, arm or leg; especially on one side of the body, sudden confusion, trouble speaking or understanding, sudden trouble seeing in one or both eyes, sudden trouble walking, dizziness, loss of balance or coordination, sudden sever headache with no cause; Call 911 or go to the emergency room. Stroke is a medical emergency. Some risk factors for stroke: Age, cigarette smoking, diabetes, excessive alcohol consumption, family history, high blood pressure, overweight, physical inactivity, prior stroke, heart attack, diagnosis of carotid artery stenosis or other artery disease. If you smoke, STOP: Smoking or tobacco use significantly increases your risk of heart and lung disease. Your chance of disease greatly increases if you continue to smoke. For more information, call the [place] tobacco quit line for smoking cessation 5-219-NZAP-NOW ( ) - Diet and Activity Activity: increase activity as tolerated Diet: advance to your usual diet
[2019-04-22 22:19] LABS: A.galactomannan Ag Index 0.04
[2019-04-24 14:09] LABS: QuantiFERON Mitogen minus NIL >10.00 IU/mL
[2019-04-25 01:32] LABS: HSV Source BAL LUL; HSV Source BAL RUL
[2019-04-25 10:12] LABS: Myeloperoxidase Ab 12 AU/mL (0-19); QuantiFERON NIL 0.03 IU/mL; QuantiFERON-TB Gold In-Tube NEGATIVE; Serine Protease-3 Antibody 0 AU/mL (0-19)
== END 2019-04-22 14:50 | disposition home or self-care (01) | DRG 871 ==
LOC: 3ANU 11:04 → EMEROOARM 11:04 → SUATTDRO 14:40 → 3ANU 16:13
PROVIDERS: ADMIT Internal Medicine Nephrology; ATTEND Internal Medicine

== ENCOUNTER 2019-11-22 22:39 | Observation (INO) ==
[2019-11-23] MEDS: 0.9 % Sodium Chloride 1,000 ML IVC SCH ×2 (00:02→04:40)
[2019-11-23] MEDS ORDERED: NIFEdipine 10 MG CAPSULE SL ONE (00:38)
[2019-11-23] MEDS ORDERED: diazePAM 10 MG/2 ML SYRINGE IVP ONE (01:16)
[2019-11-23] MEDS ORDERED: Ondansetron 4 MG/2 ML VIAL IVP PRN (03:58)
[2019-11-23] MEDS ORDERED: Naloxone 0.4 MG/ML INJ IVP PRN (03:58)
[2019-11-23] MEDS ORDERED: diazePAM 10 MG/2 ML SYRINGE IVP PRN ×2 (03:59→04:15)
[2019-11-23] MEDS ORDERED: *HR* FentaNYL (PF) 100 MCG/2 ML VIAL ONE (07:51)
[2019-11-23] MEDS ORDERED: Lidocaine -MPF 2% 2 ML VIAL ONE ×3 (07:51→07:54)
[2019-11-23] MEDS ORDERED: *HR* Succinylcholine 200 MG/10 ML VIAL IVP ONE (07:51)
[2019-11-23] MEDS ORDERED: Ondansetron 4 MG/2 ML VIAL ONE (07:51)
[2019-11-23] MEDS ORDERED: Dexamethasone 4 MG/ML VIAL ONE (07:51)
[2019-11-23] MEDS ORDERED: *HR* Propofol 200 MG/20 ML VIAL IVP ONE (07:52)
[2019-11-23] MEDS ORDERED: *HR* Midazolam HCl 2 MG/2 ML VIAL ONE (07:52)
[2019-11-23 09:14] VITALS: BP 139/83
== END 2019-11-23 11:45 | disposition home or self-care (01) ==
LOC: 3BNU 22:39 → EMEROOARM 22:39 → 3BNU 11-23 03:04 → SUATTDRO 11-23 03:58
PROVIDERS: ADMIT Family Medicine; ATTEND Internal Medicine